=== PATIENT | female | born 1965 | race Hispanic/Latino ===

== ENCOUNTER → 2018-10-11 | Outpatient (CLI) | payer OTHER | LOC: C.LAB 09:00 | DX: Z00.00 Encounter for general adult medical examination without abnormal findings (principal); R53.83 Other fatigue; E66.9 Obesity, unspecified ==

== ENCOUNTER 2018-11-20 06:46 | Day surgery (SDC) | payer OTHER ==
[2018-11-20 07:15] VITALS: BMI 38.9
[2018-11-20 07:33] VITALS: O2SAT 100
[2018-11-20] MEDS ORDERED: Propofol 10 mg/ml Inj (20 ML) ONE ×2 (07:59→08:23)
[2018-11-20] MEDS ORDERED: Lidocaine Hydrochloride 5 ML INJ ONE (08:12)
[2018-11-20 08:51] VITALS: TEMP 98
[2018-11-20 09:22] VITALS: RESP 20
[2018-11-20 09:27] VITALS: BP 138/72; PULSE 68
== END 2018-11-20 09:25 | disposition home or self-care (01) ==
LOC: C.ENDO 06:46
PROVIDERS: ATTEND Internal Medicine Gastroenterology
DX: Z12.11 Encounter for screening for malignant neoplasm of colon (principal); D12.2 Benign neoplasm of ascending colon; D17.5 Benign lipomatous neoplasm of intra-abdominal organs; K64.0 First degree hemorrhoids; I10 Essential (primary) hypertension
CPT/HCPCS: 45380; 84703; 88305; J2704